=== PATIENT | male | born 1975 | race Caucasian/White ===

== ENCOUNTER 2017-11-21 18:53 | Emergency (ER) | END 2017-11-21 21:30 | disposition left against medical advice (07) ==

== ENCOUNTER 2018-09-01 12:03 | Emergency (ER) | END 2018-09-01 14:40 | disposition home or self-care (01) ==

== ENCOUNTER 2018-11-25 21:06 | Emergency (ER) | payer OTHER ==
[~2018-11-25] VITALS: Ht 172.7 cm; Wt 103.1 kg
[~2018-11-25 21:06] MED LIST: IBUP-1544 PO; IBUP800T48 PO; PRED20TA PO; TYL500 PO
[2018-11-25 21:08] VITALS: Ht 172.7 cm; Wt 103.1 kg
[2018-11-25] MEDS ORDERED: DIPHTH/TET/ACEL PERTUSS (ADULT) 0.5 ML VIAL IM* ONE (23:30)
[2018-11-25] MEDS ORDERED: IBUPROFEN 800 MG TAB PO ONE (23:30)
[2018-11-26] MEDS ORDERED: CEFAZOLIN 1 GM INJ IM ONE
[2018-11-26] MEDS ORDERED: AMOX1TAB10 PO (00:27)
[2018-11-26] MEDS ORDERED: IBUP800T48 PO (00:27)
[2018-11-26] MEDS ORDERED: CEPH-443 PO (00:27)
[2018-11-26 01:13] VITALS: BP 112/71; PULSE 65; RESP 16
--- NOTE | 2018-11-26 06:43 | ERD ---
ER Documentation Chief Complaint Chief Complaint biten by a stray dog @ his L mid finger today HPI 43-year-old male who is right-hand dominant presents the ED with dog bite to his left middle finger. Patient states the he was leaving a friend's house when a dog approached him. He tried to push the dog away while he was bitten by the dog. Patient noticed that the dog had a collar on him. He does not remember when his last tetanus update was. Denies any other injuries. ROS All systems reviewed and are negative except as per history of present illness. Medications Home Meds Active Scripts Amoxicillin/Potassium Clav (Amox-Clav 875-125 mg Tablet) 875-125 mg Tab, 1 TAB PO BID for 10 Days, #20 TAB Prov:NATHANIEL MITCHELL NETWORK SYSTEMS ENGINEER 11/26/18 Cephalexin* (Keflex*) 500 Mg Capsule, 500 MG PO QID for 7 Days, CAP Prov:NATHANIEL MITCHELL. NETWORK SYSTEMS ENGINEER 11/26/18 Ibuprofen* (Motrin*) 800 Mg Tab, 800 MG PO Q8, #30 TAB Prov:NATHANIEL MITCHELL. NETWORK SYSTEMS ENGINEER 11/26/18 Prednisone* (Prednisone*) 20 Mg Tab, 40 MG PO DAILY PRN for foot inflammation for 3 Days, #6 TAB Prov:BROOKS SCHMITT DO 09/01/18 Acetaminophen* (Tylenol*) 500 Mg Tab, 500 MG PO Q4H PRN for PAIN, #30 TAB Prov:BROOKS SCHMITT DO 09/01/18 Ibuprofen* (Ibuprofen*) 800 Mg Tablet, 800 MG PO Q6H PRN for PAIN, #30 TAB Prov:BROOKS SCHMITT DO 09/01/18 Ibuprofen* (Motrin*) 800 Mg Tab, 800 MG PO Q6 PRN for PAIN, #20 TAB Prov:ERA HEALY PA-C 02/26/16 Allergies Allergies: Coded Allergies: No Known Allergy (Unverified , 11/21/17) PMhx/Soc Medical and Surgical Hx: pt denies Medical Hx, pt denies Surgical Hx History of Surgery: No Anesthesia Reaction: No Hx Neurological Disorder: No Hx Respiratory Disorders: No Hx Cardiac Disorders: No Hx Psychiatric Problems: No Hx Miscellaneous Medical Probl: No Hx Alcohol Use: Yes Hx Substance Use: Yes (MARIJUANA) Hx Tobacco Use: No Smoking Status: Current some day smoker Physical Exam Vitals Vital Signs Date Temp Pulse Resp B/P (MAP) Pulse Ox O2 O2 Flow FiO2 Time Delivery Rate 11/26/18 97.8 65 16 112/71 97 Room Air 01:13 (85) 11/25/18 98.5 109 18 125/73 98 21:08 (90) Physical Exam General: Well-developed, well-nourished, conscious and coherent, in no distress Skin: Warm and dry without rash, good texture and turgor Head: Normocephalic without evidence of trauma Chest: Normal AP diameter. Good expansion without retractions. Nontender. Lungs are clear to auscultate bilaterally with good tidal volume Heart: Regular rate and rhythm. No murmur, rub, or gallops heard Extremities: Puncture wound noted on the dorsal and ventral aspect of the distal left middle finger, through the base of the nail, without significant laceration. There is slight swelling and ecchymosis at the distal phalanx of the left middle finger. Full range of motion. Good strength bilaterally. Peripheral pulses are intact. Sensation intact Neuro: Alert and oriented 4, GCS 15. Results 24 hrs Current Medications Medications Dose Sig/Jody Start Time Status Last (Trade) Ordered Route PRN Stop Time Admin Dose Reason Admin Diphtheria/ 0.5 ml ONCE ONCE 11/25/18 DC 11/25/18 Tetanus/Acell IM* 23:30 11/25/18 23:41 Pertussis 23:31 (Adacel) Ibuprofen 800 mg ONCE ONCE 11/25/18 DC (Motrin) PO 23:30 11/25/18 23:31 Cefazolin 1 gm ONCE ONCE 11/26/18 DC 11/25/18 Sodium IM 00:00 11/26/18 23:58 (Ancef) 00:01 PROCEDURE: XR finger. CLINICAL INDICATION: Dog bite. Concern for fracture of left middle finger TECHNIQUE: PA, oblique and lateral views of the left middle finger were obtained. COMPARISON: None available. FINDINGS: Mineralization is within normal limits. Comminuted fracture involving the distal phalanx is present with minimal displacement but no evidence of intra-articular extension. No additional fractures are present. Joint spaces are preserved. Soft tissue swelling about the distal phalanx is noted with a suspected laceration. No radiopaque foreign body is present. RPTAT:HJJR IMPRESSION: Acute, comminuted, minimally displaced extra-articular distal phalangeal fracture of the left middle finger. Physician Shannon Date Time Electronically viewed and signed by Terell Chris Physician on 11/26/2018 00:12 JR/ CC: NATHANIEL MITCHELL NETWORK SYSTEMS ENGINEER Procedures/MDM Appearance 43-year-old male present ED with dog bite to his left middle finger. There is no laceration, wound repair is not indicated. X-ray of the injured finger showed comminuted minimally displaced fracture of the distal phalanx left middle finger. This is concerning for open fracture. Ancef 1 g IM given to the patient in the ED. Patient also given Tdap update. Dog bite appears to be unprovoked, and the dog is likely someone's pet. Rabies prophylaxis is not indicated. The area of injury was immobilized with a metal finger splint. Patient was noted to be comfortable and neurovascularly intact both before and after the immobili zation. Patient advised to follow-up with PCP for orthopedic referral. Patient appears well, stable for discharge and outpatient management. Medical decision making shared with patient and family. Education provided to patient and family. Patient and family expressed understanding of the plan. Medications on discharge: Ibuprofen, Augmentin, Keflex. Follow-up: Primary care provider in 1 week or return to ED if worse. Disclaimer: Inadvertent spelling and grammatical errors are likely due to EHR/dictation software use and do not reflect on the overall quality of patient care. Also, please note that the electronic time recorded on this note does not necessarily reflect the actual time of the patient encounter. Departure Diagnosis: Primary Impression: Dog bite Condition: Stable Patient Instructions: Dog Bite, Fracture, Finger (Open) Referrals: COMMUNITY CLINICS YOU HAVE RECEIVED A MEDICAL SCREENING EXAM AND THE RESULTS INDICATE THAT YOU DO NOT HAVE A CONDITION THAT REQUIRES URGENT TREATMENT IN THE EMERGENCY DEPARTMENT. FURTHER EVALUATION AND TREATMENT OF YOUR CONDITION CAN WAIT UNTIL YOU ARE SEEN IN YOUR DOCTORS OFFICE WITHIN THE NEXT 1-2 DAYS. IT IS YOUR RESPONSIBILITY TO MAKE AN APPOINTMENT FOR FOLOW-UP CARE. IF YOU HAVE A PRIMARY DOCTOR --you should call your primary doctor and schedule an appointment IF YOU DO NOT HAVE A PRIMARY DOCTOR YOU CAN CALL OUR PHYSICIAN REFERRAL HOTLINE AT IF YOU CAN NOT AFFORD TO SEE A PHYSICIAN YOU CAN CHOSE FROM THE FOLLOWING [facility] [address] [facility] [address] [facility] [address] [facility] [address] [facility] [address] [facility]. [facility] [address] Additional Instructions: Call your primary care doctor TOMORROW for an appointment during the next 1 WEEK.Tell the game and fish protector that you were referred from this facility.See the doctor sooner or return here if your condition worsens before your appointment time. Ask your primary provider for a referral to technology sales specialist. NATHANIEL MITCHELL NP Nov 26, 2018 06:43
== END 2018-11-26 01:13 | disposition home or self-care (01) ==
LOC: FTE 21:06
DX: S62.633A Displaced fracture of distal phalanx of left middle finger, initial encounter for closed fracture (principal); F17.210 Nicotine dependence, cigarettes, uncomplicated; R40.2412 Glasgow coma scale score 13-15, at arrival to emergency department; W54.0XXA Bitten by dog, initial encounter; Y92.009 Unspecified place in unspecified non-institutional (private) residence as the place of occurrence of the external cause; Z23 Encounter for immunization
CPT/HCPCS: 29130; 73140; 90715; J0690; 90471; 96372